=== PATIENT | female | born 1990 | race Caucasian/White ===

== ENCOUNTER 2018-03-12 01:48 | Emergency (ER) | payer BC, OTHER ==
[~2018-03-12] VITALS: Ht 172.7 cm; Wt 90.7 kg
[~2018-03-12 01:48] MED LIST: BENZONATATE100 MG PO; DOXYCYCLINE HY100 MG PO; LEVAQUIN500 MG PO; LEVOCETIRIZINE D5 MG; POLYMYXIN B-TMP10 ML; PREDNISONE20 MG PO
--- OUTSIDE RECORDS SUMMARY | 2018-03-12 01:51 | XMS REPORT | Encounter Summary ---
Author Organization Unknown Address [address] [place] [address] Phone [phone] Reason for Visit Medical Complaint; cough, congestion, ear pain Instructions 1. Acute sinusitis Zithromax Z-Orville 250 mg tablet 2. Allergic rhinitis 3. Eustachian tube disorder Discussion Note: None recorded. Patient educational handouts: No information available. Plan of Care Patient Instructions Take antibiotic as prescribed. Handwashing. Increase fluid intake and plenty of rest. May take tynenol/motrin for pain. may use cloraseptic throat spray for sore throat. Start on Rhinocort and Zyrtec daily x 10 days. If no improvement in 3-5 days, or worsening of symptoms, see primary care physician. Reminders Provider Appointments None recorded. Lab None recorded. Referral None recorded. Procedures None recorded. Surgeries None recorded. Imaging None recorded. Medications Name Start Date NuvaRing 0.12 mg -0.015 mg/24 hr vaginal Zithromax Z-Orville 250 mg tablet TAKE 2 TABLETS (500 MG) BY ORAL ROUTE ONCE DAILY FOR 1 DAY THEN 1 TABLET (250 MG) BY ORAL ROUTE ONCE DAILY FOR 4 DAYS Medications Administered None recorded. Vitals Height Weight BMI Blood Pressure 5 ft 8 in 204 lbs 31 118/80 Lab Results None recorded. Allergies Name Reaction Severity Onset Augmentin Hives Severe Penicillins Rash Severe Problems Name Status Onset Date Source Streptococcal Sore Throat Active Encounter Eustachian Tube Disorder Active Encounter Otitis Media Active Encounter Acute Sinusitis Active Encounter Allergic Rhinitis Active Encounter Procedures None recorded. 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 History of Present Illness Jwhgs-Naglphlgii-Aewpdcw Reported By: Patient HPI: Location: head/sinuses. Quality: productive cough, colored phlegm, nasal/sinus congestion. Duration: 4days. Severity: moderate. Onset/Timing: gradual. Context: no sick contacts, no foreign travel, non-smoker. Modifying factors: OTC medication. Associated Symptoms: no shortness of breath, no wheezing, no change in number of pillows needed to sleep at night, no sweats, no significant weight gain, no significant weight loss, no morning cough, no sore throat, no vomiting, no diarrhea, no rash, no nausea, green sputum Review of Systems Basic Reported By: Patient Constitutional: Constitutional: no fever Eyes: Eyes: no eye complaints Okok-Ucue-Ghify-Throat: Ears: ear pain. Nose: nose/sinus problems. Mouth/Throat: no sore throat, no bleeding gums, no mouth complaints, no teeth problems Cardiovascular: Cardiovascular: no chest pain, no shortness of breath, no known heart murmur Respiratory: Respiratory: no wheezing, no shortness of breath, cough Gastrointestinal: Gastrointestinal: no abdominal pain, no vomiting / diarrhea Genitourinary: Genitourinary: no urinary complaints, no discharge Musculoskeletal: Musculoskeletal: no muscle aches, no muscle weakness, no arthralgias/joint pain, no back pain Skin: Skin: no abnormal / changing mole, no jaundice, no rashes Neurologic: Neurologic: no loss of consciousness, no weakness, no numbness, no seizures, no dizziness, no headaches Physical Exam Adult Basic, Adult Female Complete Constitutional: General Appearance: healthy-appearing, well-nourished, well-developed. Level of Distress: NAD. Ambulation: ambulating normally Psychiatric: Mental Status: active and alert. Orientation: to time, to place, to person Eyes: Lids and Conjunctivae: non-injected, no discharge, no pallor. Pupils: PERRLA. Corneas: grossly intact. EOM: EOMI. Lens: clear. Sclerae: non-icteric. Vision: acuity grossly intact Hkb-Abau-Ibcbb-Throat: Ears: no lesions on external ear, no outer ear tenderness, EACs clear, TMs clear, middle ear fluid. Hearing: no hearing loss. Nose: no lesions on external nose, nares patent, no septal deviation, nasal passages clear, sinus tenderness, nasal discharge--purulent, post nasal drip. Lips, Teeth, and Gums: no mouth or lip ulcers, no bleeding gums, normal dentition. Oropharynx: moist mucous membranes, no exudates, tonsils not enlarged, erythema Neck: Neck: supple, trachea midline, no masses, FROM. Lymph Nodes: no supraclavicular LAD, anterior cervical LAD. Thyroid: no enlargement, non-tender, no nodules Lungs: Respiratory effort: no dyspnea, no tachypnea, no use of accessory muscles, no intercostal retractions. Auscultation: breath sounds normal Cardiovascular: Heart Auscultation: RRR, no murmurs. Neck vessels: no carotid bruits
--- OUTSIDE RECORDS SUMMARY | 2018-03-12 01:51 | XMS REPORT | Encounter Summary ---
Author Organization Unknown Address [address] [place] [address] Phone [phone] Reason for Visit Medical Complaint Instructions 1. Pain in throat rapid strep group A, throat Depo-Medrol 80 mg/mL suspension for injection 2. Feeling feverish rapid flu (A+B) Discussion Note: None recorded. Patient educational handouts: No information available. Plan of Care Patient Instructions consider a trial of flonase and zyrtec if you havent already. follow up pcp Reminders Provider Appointments None recorded. Lab Rapid Strep Group a, Throat 05/12/2016 [facility] Rapid Flu (A+B) 05/12/2016 [facility] Referral None recorded. Procedures None recorded. Surgeries None recorded. Imaging None recorded. Medications Name Start Date colestipol 1 gram tablet Depo-Medrol 80 mg/mL suspension for injection 80 mg/mL IM injectable x 1 Dexilant 60 mg capsule, delayed release dicyclomine 20 mg tablet diphenhyd trnsgel 25mg/ml ferrous sulfate 325 mg (65 mg iron) tablet TAKE 1 TABLET BY MOUTH 3 TIMES A DAY hydrocortisone-pramoxine 2.5 %-1 % (4g) rectal cream hyoscyamine sulfate 0.125 mg tablet levocetirizine 5 mg tablet TAKE 1 TABLET BY MOUTH AT BEDTIME lorazepam 0.5 mg tablet lorazepam 1 mg tablet metoclopramide 10 mg tablet NuvaRing 0.12 mg -0.015 mg/24 hr vaginal ondansetron 4 mg disintegrating tablet prednisone 20 mg tablet TAKE 1 TABLET BY MOUTH TWICE A DAY promethazine 25 mg rectal suppository promethazine 25 mg tablet sucralfate 1 gram tablet Medications Administered Name Date Depo-Medrol 80 mg/mL suspension for injection 80 mg/mL IM injectable x 1 [id number] Vitals Height Weight BMI Blood Pressure 5 ft 8 in 185 lbs 28.1 118/72 Lab Results Date Name Result Description Value Range Status Rapid Flu (A+B) Influenza a negative Influenza B negative Rapid Strep Group a, Throat Result negative Swab Location Left and Right tonsillar pillars Allergies Name Reaction Severity Onset Augmentin Hives Severe Penicillins Rash Severe Reglan Other Severe Problems Name Status Onset Date Source Streptococcal Sore Throat Active Encounter Conjunctivitis Active Encounter Eustachian Tube Disorder Active Encounter Otitis Media Active Encounter Acute Sinusitis Active Encounter Allergic Rhinitis Active Encounter Procedures None recorded. Vaccine List Vaccine Type influenza, injectable, quadrivalent 11/24/2015 influenza, seasonal, injectable 11/23/2014 Tdap 11/23/2014 Social History Smoking Status Never Smoker Past Encounters 05/12/2016 Pain in Throat; Feeling Feverish Kang Lantigua, [facility]-C: [address] [facility], [place] [address], Ph. History of Present Illness Yfchw-Fkjiddtgox-Mdpsmlk Reported By: Patient HPI: Location: throat. Quality: sore throat. Duration: 2days. Severity: moderate. Onset/Timing: gradual. Context: no sick contacts, no foreign travel, non- smoker. Modifying factors: OTC medication. Associated Symptoms: no sputum production, no shortness of breath, no wheezing, no change in number of pillows needed to sleep at night, no sweats, no significant weight gain, no significant weight loss, no morning cough, no vomiting, no diarrhea, no rash, no nausea, no fever, no muscle aches, no headache, sore throat Review of Systems:ROS as noted in the HPI Review of Systems Basic Reported By: Patient Physical Exam Adult Basic, Adult Female Complete Reported By: Patient Constitutional: General Appearance: healthy-appearing, well-nourished, well-developed. Level of Distress: NAD. Ambulation: ambulating normally Psychiatric: Mental Status: active and alert Eyes: Lids and Conjunctivae: non-injected, no discharge Cpw-Wdyp-Rijbp-Throat: Ears: no lesions on external ear, no outer ear tenderness, EACs clear, TMs clear. Hearing: no hearing loss. Nose: no lesions on external nose. Oropharynx: moist mucous membranes, no erythema, no exudates, tonsils enlarged 2+ Neck: Neck: trachea midline. Lymph Nodes: no cervical LAD Lungs: Respiratory effort: no dyspnea, no tachypnea, no use of accessory muscles, no intercostal retractions. Auscultation: breath sounds normal Cardiovascular: Heart Auscultation: RRR, no murmurs
--- OUTSIDE RECORDS SUMMARY | 2018-03-12 01:51 | XMS REPORT | Encounter Summary ---
Author Organization Unknown Address [address] [place] [address] Phone [phone] Reason for Visit Medical Complaint Instructions 1. Viral upper respiratory tract infection Medrol (Orville) 4 mg tablets in a dose pack rapid flu (A+B) 2. Sore throat symptom rapid strep group A, throat sore throat: care instructions 3. Body mass index 30+ - obesity Discussion Note explained to patient regarding viral vs bacterial infection. Encouraged adequate hydration and fluids. Discussed hand hygiene and CDC guidelines for viral infections. If new, worsening or persistance of symptoms follow up with PCP. If SOB, wheezing, fever, difficulty swallowing or abdominal pain go to ED. Pt verbalizes understanding and agrees with plan of care. May alternate Motrin and Tylenol for fever, pain or discomfort as needed per label instructions. Plan of Care Reminders Provider Appointments None recorded. Lab Rapid Strep Group a, Throat 11/23/2017 [facility] Rapid Flu (A+B) 11/23/2017 [facility] Referral None recorded. Procedures None recorded. Surgeries None recorded. Imaging None recorded. Medications Name Start Date Dexilant 60 mg capsule, delayed release TAKE ONE CAPSULE BY MOUTH EVERY DAY Medrol (Orville) 4 mg tablets in a dose pack TAKE PO DIRECTED WelChol 625 mg tablet TAKE 1 TABLET BY MOUTH ONCE A DAY Medications Administered None recorded. Vitals Height Weight BMI Blood Pressure 5 ft 8 in 221 lbs 33.6 kg/m2 110/72 mm[Hg] Lab Results Date Name Specimen Result Interpretation Description Value Range Status Address Rapid Flu (A+B) Influenza a negative [facility]: [address] [place] [address] Influenza B negative [facility]: [address] [place] [address] Rapid Strep Group a, Throat Result negative [facility]: [address] [place] [address] Swab Location Left and Right tonsillar pillars [facility]: [address] [place] [address] Allergies Code Code System Name Reaction Severity Status Onset 204915 RxNorm Augmentin Hives Severe Active Penicillins Rash Severe Active 29 RxNorm Reglan Other Severe Active Problems Name Status Onset Date Source Body Mass Index 30+ - Obesity Active 11/23/2017 Streptococcal Sore Throat Active Encounter Conjunctivitis Active Encounter Eustachian Tube Disorder Active Encounter Otitis Media Active Encounter Acute Sinusitis Active Encounter Allergic Rhinitis Active Encounter Procedures None recorded. Vaccine List Vaccine Type influenza, injectable, quadrivalent 11/25/2015 11/19/2017 influenza, seasonal, injectable 11/24/2014 influenza, unspecified formulation 11/24/2016 Tdap 11/24/2014 Social History Smoking Status Never Smoker Past Encounters 11/23/2017 Viral Upper Respiratory Tract Infection; Sore Throat Symptom; Body Mass Index 30+ - Obesity Gokul Andre PA-C: [address] [place] [address], Ph. History of Present Illness Throat-Oral Complaint Reported By: Patient HPI: Location: throat. Quality: sore throat, productive cough, congested. Severity: mild. Duration: 2 days. Onset/Timing: sudden. Context: no foreign travel, non- smoker, sick contact. Modifying factors: OTC medication. Associated Symptoms: no fever, no shortness of breath, no wheezing, no change in number of pillows needed to sleep at night, no sweats, no significant weight gain, no significant weight loss, no morning cough, no vomiting, no rash, headache, body aches, yellow-green, thick sputum, sore throat, diarrhea, nausea Review of Systems Basic Reported By: Patient Constitutional: Constitutional: no fever Eyes: Eyes: no eye complaints Blay-Kfvy-Entlv-Throat: Ears: difficulty hearing. Nose: nose/sinus problems. Mouth/Throat: no bleeding gums, no mouth complaints, no teeth problems, sore throat Cardiovascular: Cardiovascular: no chest pain, no shortness of breath, no known heart murmur Respiratory: Respiratory: no wheezing, no shortness of breath, cough Gastrointestinal: Gastrointestinal: no abdominal pain, diarrhea Genitourinary: Genitourinary: no urinary complaints, no discharge Musculoskeletal: Musculoskeletal: no muscle aches, no muscle weakness, no arthralgias/joint pain, no back pain Skin: Skin: no abnormal / changing mole, no jaundice, no rashes Neurologic: Neurologic: no loss of consciousness, no weakness, no numbness, no seizures, no dizziness, no headaches, headache Physical Exam Adult Basic Reported By: Patient Constitutional: General Appearance: obese. Level of Distress: NAD. Ambulation: ambulating normally Psychiatric: Mental Status: active and alert. Orientation: to time, to place, to person Eyes: Lids and Conjunctivae: non-injected, no discharge, no pallor. Pupils: PERRLA. EOM: EOMI. Sclerae: non-icteric. Vision: acuity grossly intact Zrm-Mmkk-Tspik-Throat: Ears: no lesions on external ear, no outer ear tenderness, EACs clear, TMs clear, middle ear fluid. Hearing: no hearing loss. Nose: no lesions on external nose, nares patent, no septal deviation, nasal passages clear, no sinus tenderness, nasal discharge, post nasal drip. Lips, Teeth, and Gums: no mouth or lip ulcers, no bleeding gums, normal dentition. Oropharynx: moist mucous membranes, no erythema, no exudates, tonsils not enlarged; cobblestoning Neck: Neck: supple, trachea midline, no masses, FROM. Lymph Nodes: no cervical LAD, no supraclavicular LAD Lungs: Respiratory effort: no dyspnea, no tachypnea, no use of accessory muscles, no intercostal retractions. Auscultation: breath sounds normal Cardiovascular: Heart Auscultation: RRR, no murmurs
--- OUTSIDE RECORDS SUMMARY | 2018-03-12 01:51 | XMS REPORT | Encounter Summary ---
Author Organization Unknown Address [address] [place] [address] Phone [phone] Care Team Providers Care Cupboard Builder Name Role Phone Carmella Tracey MD 3 [phone] Reason for Visit Medical Complaint Instructions 1. Rhinitis Medrol (Orville) 4 mg tablets in a dose pack rapid flu (A+B) 2. Generalized aches and pains Discussion Note Pt is in NAD; Verbalizes understanding of all instructions with no questions at this time. Patient educational handouts: No information available. Plan of Care Patient Instructions Take fluticasone over the counter as needed for congestion. Ledger one spray in each nostril twice a day. Take a warm, steamy shower, blow your nose thereafter, and spray in each nostril. Tilt your head up for about 10 seconds and breath through your mouth. Do not sniff or snort the medication in or else the medication will go to your throat and not be absorbed appropriately. Take over the counter Xyzal for allergy like symptoms like runny nose, sneezing and watery eyes. Take steroid taper as directed and with food to avoid heartburn. Take medications as prescribed and follow up with a PCP within 2-3 if symptoms worsen as discussed. Reminders Provider Appointments None recorded. Lab Rapid Flu (A+B) 2017 [facility] Referral None recorded. Procedures None recorded. Surgeries None recorded. Imaging None recorded. Medications Name Start Date colestipol 1 gram tablet Dexilant 60 mg capsule, delayed release TAKE ONE CAPSULE BY MOUTH EVERY DAY ferrous sulfate 325 mg (65 mg iron) tablet TAKE 1 TABLET BY MOUTH 3 TIMES A DAY Fluarix Quad 4041-7239 (PF) 60 mcg (15 mcg x 4)/0.5 mL IM syringe TO BE ADMINISTERED BY PHARMACIST FOR IMMUNIZATION Medrol (Orville) 4 mg tablets in a dose pack TAKE PO DIRECTED NuvaRing 0.12 mg -0.015 mg/24 hr vaginal INSERT 1 RING VAGINALLY DIRECTED. REMOVE AFTER 3 WEEKS & WAIT 7 DAYS BEFORE INSERTING A NEW RING WelChol 625 mg tablet TAKE 1 TABLET BY MOUTH ONCE A DAY Medications Administered None recorded. Vitals Height Weight BMI Blood Pressure 5 ft 8 in 206 lbs 31.3 kg/m2 120/74 mm[Hg] Lab Results Date Name Specimen Result Interpretation Description Value Range Status Address Rapid Flu (A+B) Influenza a negative [facility]: [facility] Influenza B negative [facility]: [facility] Allergies Code Code System Name Reaction Severity Status Onset 392807 RxNorm Augmentin Hives Severe Active Penicillins Rash Severe Active 3268 RxNorm Reglan Other Severe Active Problems Name Status Onset Date Source Streptococcal Sore Throat Active Encounter Conjunctivitis Active Encounter Eustachian Tube Disorder Active Encounter Otitis Media Active Encounter Acute Sinusitis Active Encounter Allergic Rhinitis Active Encounter Procedures None recorded. 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 History of Present Illness Orhiw-Nayqapbtri-Ghhitxz Reported By: Patient HPI: Location: head/sinuses. Quality: nasal/sinus congestion. Duration: 2days. Severity: moderate. Onset/Timing: gradual. Context: [...] nausea, no fever, no muscle aches, no headache; nasal congestion, sinus pressure, rhinorrhea, and body aches Review of Systems:ROS as noted in the HPI Review of Systems Basic Reported By: Patient Physical Exam Adult Basic, 14-21 Yr Male, Adult Female Complete Reported By: Patient Constitutional: General Appearance: healthy-appearing, well-nourished, well-developed. Level of Distress: NAD. Ambulation: ambulating normally Psychiatric: Mental Status: active and alert. Orientation: to time, to place, to person Swa-Pqbb-Lwzdv-Throat: Ears: no lesions on external ear, no outer ear tenderness, EACs clear, TMs clear. Hearing: no hearing loss. Nose: no lesions on external nose, nares patent, no septal deviation, nasal passages clear, no sinus tenderness, nasal discharge--rhinorrhea, post nasal drip; pink and edematous nasal turbinates bilaterally. Lips, Teeth, and Gums: no mouth or lip ulcers, no bleeding gums, normal dentition. Oropharynx: moist mucous membranes, no erythema, no exudates, tonsils not enlarged Neck: Lymph Nodes: no cervical LAD Lungs: Respiratory effort: no dyspnea, no tachypnea, no use of accessory muscles, no intercostal retractions. Auscultation: breath sounds normal Cardiovascular: Heart Auscultation: RRR, no murmurs Neurologic: Gait and Station: normal gait, normal station
--- OUTSIDE RECORDS SUMMARY | 2018-03-12 01:51 | XMS REPORT | Clinical Summary ---
Author Author [facility] Organization [facility] Address Unknown Phone Unavailable Care Team Providers Care Php Engineer Name Role Phone Sampson Heller MD PCP Allergies Comments Active Allergy Reactions Severity Noted Date Tremors Metoclopramide Other (See 04/01/2016 Comments) Rash and swelling Penicillins Other (See 04/01/2016 Comments) Medications End Date Status Medication Sig Dispensed Refills Start Date Active NUVARING 0.12-0.015 mg/24 0 hr vaginal ring 6 Active ferrous sulfate 325 (65 Take 1 tablet 4 FE) MG tablet by mouth 3 6 (three) times a day. Active LORAZepam (ATIVAN) 1 MG Take 0.5 mg 0 tablet by mouth 6 every 12 (twelve) hours. Active ondansetron ODT Take 4 mg by 3 (ZOFRAN-ODT) 4 MG mouth every 6 6 disintegrating tablet (six) hours as needed. Active LORAZepam (ATIVAN) 0.5 MG 1 mg 2 (two) 0 tablet times a day. 7 Active traMADol (ULTRAM) 50 mg TAKE 1 TABLET 0 tablet BY MOUTH 6 EVERY 4 HOURS NEEDED (PAIN SCALE 4-6) Active DOMPERIDONE, BULK, MISC 10 mg 3 0 (three) times a day. Active Take 1 tablet 0 vit,[id number] 29 by mouth mg iron- 1 mg tablet per daily. tablet Active promethazine (PHENERGAN) Insert 1 30 3 25 MG suppository suppository suppository 7 (25 mg total) into the rectum every 6 (six) hours as needed for nausea or vomiting for up to 30 doses. Active promethazine (PHENERGAN) Take 1 tablet 30 tablet 3 25 MG tablet (25 mg total) 7 by mouth every 6 (six) hours as needed for nausea or vomiting for up to 30 doses. for nausea Active colesevelam (WELCHOL) 625 Take 1 tablet 30 tablet 3 mg tablet (625 mg 8 total) by mouth daily. Active DEXILANT 60 mg capsule Take 1 90 capsule 3 capsule (60 9 mg total) by mouth daily. 03/09/2018 Discontinued DEXILANT 60 mg capsule TAKE ONE 3 CAPSULE BY 7 MOUTH ONCE A DAY 04/25/2017 Discontinued WELCHOL 625 mg tablet TAKE 1 TABLET 30 tablet 3 BY MOUTH ONCE 7 A DAY 09/02/2017 Discontinued WELCHOL 625 mg tablet TAKE 1 TABLET 30 tablet 3 BY MOUTH ONCE 8 A DAY 11/26/2017 Discontinued colesevelam (WELCHOL) 625 Take 1 tablet 30 tablet 3 mg tablet (625 mg 8 total) by mouth daily. 02/16/2018 Discontinued colesevelam (WELCHOL) 625 Take 1 tablet 30 tablet 3 mg tablet (625 mg 8 total) by mouth daily. Active Problems Problem Noted Date Right upper quadrant abdominal pain 06/27/2016 Functional diarrhea 06/27/2016 Postviral gastroparesis 04/01/2016 Gastroesophageal reflux disease with esophagitis 04/01/2016 S/P cholecystectomy 04/01/2016 Encounters Care Team Description Date Type Specialty Lux Palma MD 03/09/2018 Orders Only Gastroenterology Lori Petersen MD 03/09/2018 Refill GastroenterLux Rider MD 02/16/2018 Refill GastroenterNeville Wagner LVN 11/26/2017 Orders Only Neville Daniel LVN 09/02/2017 Orders Only Lux Srivastava MD 09/01/2017 Refill Lux Srivastava MD 08/30/2017 Refill GastroenterLux Rider MD Postviral gastroparesis (Primary Dx); Gastroesophageal reflux disease with esophagitis; Functional diarrhea; Right upper quadrant abdominal pain; S/P cholecystectomy 06/26/2017 Office Visit Gastroenterology Lux Palma MD 04/25/2017 Refill Gastroenterology after 03/11/2017 Family History Medical History Relation Name Comments GERD Brother Relation Name Status Comments Brother Social History Date Tobacco Use Types Packs/Day Years Used Never Smoker Sex Assigned at Date Recorded Not on file Industry Job Start Date Occupation Not on file Not on file Not on file Travel End Travel History Travel Start No recent travel history available. Last Filed Vital Signs Time Taken Vital Sign Reading 06/26/2017 3:54 PM CDT Blood Pressure 136/86 06/26/2017 3:54 PM CDT Pulse 71 06/26/2017 3:54 PM CDT Temperature 36.9 C (98.5 F) - Respiratory Rate - - Oxygen Saturation - - Inhaled Oxygen - Concentration 06/26/2017 3:54 PM CDT Weight 95.3 kg (210 lb) 06/26/2017 3:54 PM CDT Height 165.1 cm (5' 5") 06/26/2017 3:54 PM CDT Body Mass Index 34.95 Plan of Treatment Care Team Description Date Type Specialty Lux Palma MD [address] [address] 06/26/2018 Office Visit Gastroenterology Health Maintenance Due Date Last Done Comments CERVICAL CANCER SCREENING 01/09/2013 INFLUENZA VACCINE Completed 12/08/2017, 11/25/2016, 11/24/2016, Additional history exists Results Not on fileafter 03/11/2017 Insurance Payer Benefit Subscriber ID Type Phone Address Plan / Group CIGNA CIGNA PPO xxxxxxxxxxx PPO BCBS BCBS OUT xxxxxxxxxxxx PPO OF STATE Advance Directives Patient has advance care planning documents on file. For more information, mark montes contact: Edwardo Gonzalez [address] [place] [address]
--- OUTSIDE RECORDS SUMMARY | 2018-03-12 01:51 | XMS REPORT | Continuity of Care Document ---
Author Author [facility] Interface Address Unknown Phone Unavailable Problems Problem Status Onset Date Classification Date Reported Comments Source Sore throat symptom 11/23/2017 Diagnosis 11/23/2017 [facility] Viral upper respiratory tract infection 11/23/2017 Diagnosis 11/23/2017 [facility] Body mass index 30+ - obesity 11/23/2017 Diagnosis 11/23/2017 [facility] Body Mass Index 30+ - Obesity 11/23/2017 Problem 11/23/2017 [facility] Rhinitis 2017 Diagnosis 01/11/2017 [facility] Generalized aches and pains 2017 Diagnosis 01/11/2017 [facility] Pain in throat 05/12/2016 Diagnosis 05/12/2016 [facility] Feeling feverish 05/12/2016 Diagnosis 05/12/2016 [facility] Acute sinusitis 09/08/2015 Diagnosis 10/02/2015 [facility] Allergic rhinitis 09/08/2015 Diagnosis 10/02/2015 [facility] Eustachian tube disorder 09/08/2015 Diagnosis 10/02/2015 [facility] Streptococcal Sore Throat Problem 11/23/2017 [facility] Conjunctivitis Problem 11/23/2017 [facility] Eustachian Tube Disorder Problem 11/23/2017 [facility] Otitis Media Problem 11/23/2017 [facility] Acute Sinusitis Problem 11/23/2017 [facility] Allergic Rhinitis Problem 11/23/2017 [facility] Medications Medication Details Route Status Patient Instructions Ordering Provider Order Date Source benzonatate 200 MG Oral Capsule benzonatate 200 mg capsule Take 1 capsule(s) 3 times a day by oral route as needed for cough. Active [facility] doxycycline hyclate 100 MG Oral Tablet doxycycline hyclate 100 mg tablet Take 1 tablet(s) twice a day by oral route as directed for 7 days. Active [facility] Acetaminophen 325 MG / Hydrocodone Bitartrate 7.5 MG Oral Tablet hydrocodone 7.5 mg-acetaminophen 325 mg tablet Active [facility] Hydrocodone Bitartrate 7.5 MG / Ibuprofen 200 MG Oral Tablet hydrocodone 7.5 mg-ibuprofen 200 mg tablet Active [facility] 21 DAY Ethinyl Estradiol 0.915918 MG/HR / Etonogestrel 0.005 MG/HR Vaginal Ring [NuvaRing] NuvaRing 0.12 mg -0.015 mg/24 hr vaginal INSERT 1 RING VAGINALLY DIRECTED. REMOVE AFTER 3 WEEKS & WAIT 7 DAYS BEFORE INSERTING A NEW RING Active [facility] Polymyxin B 29989 UNT/ML / Trimethoprim 1 MG/ML Ophthalmic Solution [Polytrim] Polytrim 10,000 unit-1 mg/mL eye drops Instill 1 drop(s) every 4 hours by ophthalmic route as directed to both eyes for 7 days. Active [facility] Prednisone 20 MG Oral Tablet prednisone 20 mg tablet TAKE 1 TABLET BY MOUTH TWICE A DAY Active [facility] Esomeprazole 20 MG / Naproxen 500 MG Delayed Release Oral Tablet [Vimovo] Vimovo 500 mg-20 mg tablet,immediate and delay release Active [facility] levocetirizine dihydrochloride 5 MG Oral Tablet [Xyzal] Xyzal 5 mg tablet Take 1 tablet(s) every day by oral route at bedtime for 30 days. Active [facility] Azithromycin 250 MG Oral Tablet Zithromax Z-Orville 250 mg tablet TAKE 2 TABLETS (500 MG) BY ORAL ROUTE ONCE DAILY FOR 1 DAY THEN 1 TABLET (250 MG) BY ORAL ROUTE ONCE DAILY FOR 4 DAYS Active [facility] Colestipol Hydrochloride 1000 MG Oral Tablet colestipol 1 gram tablet Active [facility] dexlansoprazole 60 MG Delayed Release Oral Capsule [Dexilant] Dexilant 60 mg capsule, delayed release TAKE ONE CAPSULE BY MOUTH EVERY DAY Active [facility] ferrous sulfate 325 MG Oral Tablet ferrous sulfate 325 mg (65 mg iron) tablet TAKE 1 TABLET BY MOUTH 3 TIMES A DAY Active [facility] Fluarix Quad 4104-3789 (PF) 60 mcg (15 mcg x 4)/0.5 mL IM syringe Fluarix Quad 2565-6906 (PF) 60 mcg (15 mcg x 4)/0.5 mL IM syringe TO BE ADMINISTERED BY PHARMACIST FOR IMMUNIZATION Active [facility] Medrol (Orville) 4 mg tablets in a dose pack Medrol (Orville) 4 mg tablets in a dose pack TAKE PO DIRECTED Active [facility] Colesevelam hydrochloride 625 MG Oral Tablet [Welchol] WelChol 625 mg tablet TAKE 1 TABLET BY MOUTH ONCE A DAY Active [facility] 1 ML methylprednisolone acetate 80 MG/ML Injection [Depo-Medrol] Depo-Medrol 80 mg/mL suspension for injection 80 mg/mL IM injectable x 1 Active [facility] Dicyclomine Hydrochloride 20 MG Oral Tablet dicyclomine 20 mg tablet Active [facility] diphenhyd trnsgel 25mg/ml diphenhyd trnsgel 25mg/ml Active [facility] hydrocortisone acetate 25 MG/ML / Pramoxine hydrochloride 10 MG/ML Rectal Cream hydrocortisone-pramoxine 2.5 %-1 % (4g) rectal cream Active [facility] Hyoscyamine Sulfate 0.125 MG Oral Tablet hyoscyamine sulfate 0.125 mg tablet Active [facility] levocetirizine dihydrochloride 5 MG Oral Tablet levocetirizine 5 mg tablet TAKE 1 TABLET BY MOUTH AT BEDTIME Active [facility] Lorazepam 0.5 MG Oral Tablet lorazepam 0.5 mg tablet Active [facility] Lorazepam 1 MG Oral Tablet lorazepam 1 mg tablet Active [facility] Metoclopramide 10 MG Oral Tablet metoclopramide 10 mg tablet Active [facility] Ondansetron 4 MG Disintegrating Oral Tablet ondansetron 4 mg disintegrating tablet Active [facility] Promethazine Hydrochloride 25 MG Rectal Suppository promethazine 25 mg rectal suppository Active [facility] Promethazine Hydrochloride 25 MG Oral Tablet promethazine 25 mg tablet Active [facility] Sucralfate 1000 MG Oral Tablet sucralfate 1 gram tablet Active [facility] Allergies, Adverse Reactions, Alerts Substance Category Reaction Severity Reaction type Status Date Reported Comments Source Augmentin Hives Severe Allergy to substance 07/02/2014 [facility] Penicillins Rash Severe Allergy to substance 07/02/2014 [facility] Reglan Other Severe Allergy to substance 05/12/2016 [facility] Immunizations Immunization Date Given Site Status Last Updated Comments Source influenza, injectable, quadrivalent 11/19/2017 completed [facility] influenza, unspecified formulation 11/24/2016 completed [facility] influenza, injectable, quadrivalent 11/25/2015 completed [facility] influenza, seasonal, injectable 11/24/2014 completed [facility] Tdap 11/24/2014 completed [facility] Results Order Name Results Value Reference Range Date Interpretation Comments Source Influenza A negative 11/23/2017 [facility] Influenza B negative 11/23/2017 [facility] RESULT negative 11/23/2017 [facility] SWAB LOCATION Left and Right tonsillar pillars 11/23/2017 [facility] Influenza A negative 2017 [facility] Influenza B negative 2017 [facility] Influenza A negative 05/12/2016 [facility] Influenza B negative 05/12/2016 [facility] RESULT negative 05/12/2016 [facility] SWAB LOCATION Left and Right tonsillar pillars 05/12/2016 [facility] Adenovirus Ag [Presence] in Unspecified specimen by Immunoassay RESULT negative 10/02/2015 [facility] Adenovirus Ag [Presence] in Unspecified specimen by Immunoassay SWAB LOCATION Left Conjunctiva 10/02/2015 [facility] Vital Signs Vital Sign Value Date Comments Source Diastolic (mm Hg) 72 11/23/2017 [facility] Height 68 11/23/2017 [facility] Systolic (mm Hg) 110 11/23/2017 [facility] Weight 221 11/23/2017 [facility] Diastolic (mm Hg) 74 2017 [facility] Height 68 2017 [facility] Systolic (mm Hg) 120 2017 [facility] Weight 206 2017 [facility] Diastolic (mm Hg) 72 05/12/2016 [facility] Height 68 05/12/2016 [facility] Systolic (mm Hg) 118 05/12/2016 [facility] Weight 185 05/12/2016 [facility] Diastolic (mm Hg) 80 10/02/2015 [facility] Height 68 10/02/2015 [facility] Systolic (mm Hg) 122 10/02/2015 [facility] Weight 200 10/02/2015 [facility] Diastolic (mm Hg) 80 09/08/2015 [facility] Height 68 09/08/2015 [facility] Systolic (mm Hg) 118 09/08/2015 [facility] Weight 204 09/08/2015 [facility] Encounters Location Location Details Encounter Type Encounter Number Reason For Visit Attending Provider ADM Date DC Date Status Source [place] - [facility] - [id number] Swift: [address] [place] [address], Ph. [id number] Yessica Lantigua 09/08/2015 [facility] [place] - [facility] - [id number] Yessica Lantigua, [employer] PL[employer]: [address], [place] [address], Ph. 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 [id number] Yessica Lantigua 10/02/2015 [facility] [place] - [facility] - [id number] Kang Lantigua, [employer] PLAC[employer]-C: [address], [place] [address], Ph. [phone] [id number] Kang Lantigua 05/12/2016 [facility] [place] [facility] - [id number] Muriel Lim, [employer]-C: [address], [place] [address], Ph. [id number] Muriel Lim 2017 [facility] [place] - [facility] - [id number] JIM Cohen-C: [address], [place] [address], Ph. [id number] Gokul Andre 11/23/2017 [facility] Procedures Procedure Code Date Perfomer Comments Source
--- OUTSIDE RECORDS SUMMARY | 2018-03-12 01:51 | XMS REPORT | Encounter Summary ---
Author Organization Unknown Address [address] [place] [address] Phone [phone] Reason for Visit Medical Complaint; eye issues x 2 days Instructions 1. Acute sinusitis doxycycline hyclate 100 mg tablet prednisone 20 mg tablet 2. Conjunctivitis Polytrim 10,000 unit-1 mg/mL eye drops adenovirus Ag, Immunoassay 3. Allergic rhinitis Xyzal 5 mg tablet benzonatate 200 mg capsule Discussion Note: None recorded. Patient educational handouts: No information available. Plan of Care Patient Instructions Continue flonase along with prescribed medication. Stop zyrtec at home. Wash hands after touching face/eyes. Do not touch tip of eye dropper to eye. Apply warm compress to affected eye as needed for soothing. Do not removed discharge or crusting with fingernales. Wash pillow cases in hot water. Take med as prescribed. Discard any eye make up used the past couple of days. If symptoms not improve in 24-48hrs, see opthalmologist. Reminders Provider Appointments None recorded. Lab Adenovirus Ag, Immunoassay 10/02/2015 [facility] Referral None recorded. Procedures None recorded. Surgeries None recorded. Imaging None recorded. Medications Name Start Date benzonatate 200 mg capsule Take 1 capsule(s) 3 times a day by oral route as needed for cough. doxycycline hyclate 100 mg tablet Take 1 tablet(s) twice a day by oral route as directed for 7 days. hydrocodone 7.5 mg-acetaminophen 325 mg tablet hydrocodone 7.5 mg-ibuprofen 200 mg tablet NuvaRing 0.12 mg -0.015 mg/24 hr vaginal Polytrim 10,000 unit-1 mg/mL eye drops Instill 1 drop(s) every 4 hours by ophthalmic route as directed to both eyes for 7 days. prednisone 20 mg tablet Take 1 tablet(s) every day by oral route after meals for 3 days. Vimovo 500 mg-20 mg tablet,immediate and delay release Xyzal 5 mg tablet Take 1 tablet(s) every day by oral route at bedtime for 30 days. Medications Administered None recorded. Vitals Height Weight BMI Blood Pressure 5 ft 8 in 200 lbs 30.4 122/80 Lab Results Date Name Result Description Value Range Status Adenovirus Ag, Immunoassay Result negative Swab Location Left Conjunctiva Allergies Name Reaction Severity Onset Augmentin Hives Severe Penicillins Rash Severe Problems Name Status Onset Date Source Streptococcal Sore Throat Active Encounter Conjunctivitis Active Encounter Eustachian Tube Disorder Active Encounter Otitis Media Active Encounter Acute Sinusitis Active Encounter Allergic Rhinitis Active Encounter Procedures None recorded. Vaccine List Vaccine Type influenza, seasonal, injectable 11/23/2014 Tdap 11/23/2014 Social History Smoking Status Never Smoker Past Encounters 10/02/2015 Acute Sinusitis; Conjunctivitis; Allergic Rhinitis CRISTIANO Dyson: [address] [place] [address], Ph. 09/08/2015 Acute Sinusitis; Allergic Rhinitis; Eustachian Tube Disorder CRISTIANO Dyson: [address] [place] [address], Ph. History of Present Illness Eye Complaint Reported By: Patient HPI: Location: bilateral. Severity: no pain. Duration actual date . Onset/Timing: first episode. Context no previous history of Iritis, no previous history of recurrent corneal erosion, no one else with similar symptoms. Modifying factors nothing gives relief, OTC medication. Associated Symptoms: vision intact, no sensitivity to light, no foreign body sensation in eyes, no pain in the eyes, no pain with eye movement, no discharge from eyes [id number] Reported By: Patient HPI: Location: head/sinuses. Quality: productive cough, nasal/sinus congestion. Severity: moderate. Onset/Timing: gradual. Context: no sick contacts, no foreign travel, non-smoker, allergies. Modifying factors: OTC medication. Associated Symptoms: no sputum production, no shortness of breath, no wheezing, no change in number of pillows needed to sleep at night, no sweats, no significant weight gain, no significant weight loss, no morning cough, no sore throat, no vomiting, no diarrhea, no rash, no nausea Review of Systems Basic Reported By: Patient Constitutional: Constitutional: no fever Eyes: Eyes: ; bilat eyes Ysiv-Uyit-Krckg-Throat: Ears: no ear complaints. Nose: nose/sinus problems. Mouth/Throat: no sore throat, [...] person Eyes: Lids and Conjunctivae: non-injected, no pallor, discharge; bilat conjunctivae erythematous with thick yellow eye drainage. Pupils: PERRLA. Corneas: grossly intact. EOM: EOMI. Lens: clear. Sclerae: non-icteric. Vision: acuity grossly intact Wyv-Tehl-Lgkoo-Throat: Ears: no lesions on external ear, no [...] erythema, no exudates, tonsils not enlarged Neck: Neck: supple, trachea midline, no masses, FROM. Lymph Nodes: no supraclavicular LAD, anterior cervical LAD. Thyroid: no enlargement, non-tender, no nodules Lungs: Respiratory effort: no dyspnea, no tachypnea, no use of accessory muscles, no intercostal retractions. Auscultation: breath sounds normal Cardiovascular: Heart Auscultation: RRR, no murmurs. Neck vessels: no carotid bruits
[2018-03-12] MEDS ORDERED: SODIUM CHLORIDE 0.9% 1000ML 1,000 ML IV STA (02:03)
[2018-03-12] MEDS ORDERED: PANTOPRAZOLE 40 MG 10ML VIAL IV STA (02:03)
[2018-03-12] MEDS ORDERED: PROMETHAZINE 25MG/ NS 50ML (IV) IV ONE (02:15)
[2018-03-12 02:41] LABS: BASOPHILS % 0.4 % (0.0-1.0); EOSINOPHILS % 0.3 % (0.0-6.0); HEMATOCRIT 40.8 % (34.2-44.1); HEMOGLOBIN 12.9 g/dL (12.0-16.0); LYMPHOCYTES # (AUTO) 0.9 (1.0-3.2); LYMPHOCYTES % 8.2 % (18.0-39.1); MEAN CORPUSCULAR HEMOGLOBIN 26.5 pg (28-32); MEAN CORPUSCULAR HGB CONC 31.6 g/dL (31-35); MONOCYTES # (AUTO) 0.5 (0.2-0.8); MONOCYTES % 4.3 % (4.4-11.3); NEUTROPHILS # (AUTO) 9.2 (2.1-6.9); NEUTROPHILS % 86.5 % (38.7-80.0); PLATELET COUNT 218 x10e3/uL (140-360); RED BLOOD COUNT 4.86 x10e6/uL (3.6-5.1); RED CELL DISTRIBUTION WIDTH 14.3 % (11.7-14.4)
[2018-03-12 02:49] LABS: CLARITY,URINE HAZY (CLEAR); COLOR,URINE YELLOW (YELLOW); LEUKOCYTE ESTERASE ,URINE NEGATIVE (NEGATIVE); NITRITE,URINE NEGATIVE (NEGATIVE); PROTEIN,URINE DIPSTICK NEGATIVE (NEGATIVE)
[2018-03-12 02:50] LABS: BILIRUBIN,URINE NEGATIVE (NEGATIVE); KETONES,URINE NEGATIVE (NEGATIVE); PREGNANCY TEST, URINE NEGATIVE (NEGATIVE); URINE UROBILINOGEN 0.2 mg/dL (0.2 - 1)
[2018-03-12 02:55] LABS: BACTERIA,URINE MODERATE /HPF; EPITHELIAL CELLS,URINE FEW /LPF; RBC,URINE 0-5 /HPF (0-5)
[2018-03-12 02:56] LABS: MUCUS,URINE MANY (RARE)
[2018-03-12 03:01] LABS: ALANINE AMINOTRANSFERASE 21 IU/L (0-55); ALBUMIN 4.4 g/dL (3.5-5.0); ALBUMIN/GLOBULIN RATIO 1.3 (0.8-2.0); ALKALINE PHOSPHATASE 78 IU/L (40-150); ANION GAP 16.4 mmol/L (8-16); BLOOD UREA NITROGEN 13 mg/dL (7-26); BUN/CREATININE RATIO 13 (6-25); CARBON DIOXIDE 25 mmol/L (22-29); CHLORIDE 104 mmol/L (98-107); CREATININE, SERUM 0.99 mg/dL (0.57-1.11); EST GLOMERULAR FILTRATION RATE > 60 ML/MIN (60-); GLUCOSE 100 mg/dL (74-118); MAGNESIUM 2.6 MG/DL (1.3-2.1); POTASSIUM 3.4 mmol/L (3.5-5.1); SODIUM 142 mmol/L (136-145)
[2018-03-12] MEDS ORDERED: ONDANSETRON HCL INJ 2 MG/ML VIAL IV STA (03:12)
[2018-03-12] MEDS ORDERED: ONDANSETRON HCL INJ 2 MG/ML VIAL ONE ×2 (03:13→03:17)
[2018-03-12] MEDS ORDERED: PROMETHAZINE 12.5MG/ NACL 0.9% 12.5 MG/50 ML BAG IV ONE (03:45)
[2018-03-12] MEDS ORDERED: SODIUM CHLORIDE 0.9% 500ML 500 ML IV ONE (03:45)
[2018-03-12 04:05] VITALS: BP 127/82
== END 2018-03-12 04:28 | disposition home or self-care (01) ==
LOC: ER 01:48
DX: R11.2 Nausea with vomiting, unspecified (principal); R19.7 Diarrhea, unspecified; K21.9 Gastro-esophageal reflux disease without esophagitis; K58.9 Irritable bowel syndrome, unspecified
CPT/HCPCS: 36415; 80053; 81001; 81025; 83735; 85025; 87086; 99283; J2405; J2550; J7030; J7040